=== PATIENT | male | born 1985 | race Caucasian/White ===

== ENCOUNTER 2018-07-10 21:47 | Emergency (ER) | payer OTHER ==
[2018-07-11] MEDS ORDERED: SULFAMETH-TMP DS STARTER PACK 2 TAB BTL PO STA (01:21)
--- NOTE | 2018-07-11 01:23 | ED ---
Skin/Abscess/FB HPI - General Chief complaint: Skin/Abscess/Foreign Body Stated complaint: Abscess Time Seen by Provider: 07/11/18 00:19 Source: patient Mode of arrival: ambulatory Limitations: no limitations - History of Present Illness Initial comments: 32-year-old male patient presents to the emergency department today for evaluation of abscesses to the bilateral forearms. Patient has a history of IV drug use. Patient states he is being treated with Bactrim for for the abscesses. Patient states that they have improved a lot however staff at [facility] was concerned because there is one area that doesn't seem completely healed. Patient states he is occasionally able to squeeze out fluid. He denies any fevers or chills. Denies any significant pain to the arms. States he did complete the prescription and full. Patient denies any recent rash, shortness breath, chest pain, abdominal pain, nausea, vomiting, diarrhea, constipation, back pain, numbness, tingling, dizziness, weakness, hematuria, dysuria, urinary urgency, urinary frequency, headache, visual changes , or any other complaints. - Related Data Previous Rx's Medication Instructions Recorded Sulfamethoxazole/Trimethoprim 1 each PO BID #14 tablet 07/11/18 [Bactrim DS 800-160 mg] Allergies Allergy/AdvReac Type Severity Reaction Status Date / Time No Known Allergies Allergy Verified 07/10/18 22:43 Review of Systems ROS Statement: Those systems with pertinent positive or pertinent negative responses have been documented in the HPI. ROS Other: All systems not noted in ROS Statement are negative. Past Medical History Past Medical History: No Reported History History of Any Multi-Drug Resistant Organisms: None Reported Additional Past Surgical History / Comment(s): Abscess remove with graft, skin graft right arm Past Psychological History: ADD/ADHD, Bipolar, Depression Smoking Status: Current every day smoker Past Alcohol Use History: None Reported Past Drug Use History: Cocaine, Heroin, IV Drug Use, Marijuana General Exam Limitations: no limitations General appearance: alert, in no apparent distress, other (This is a well- developed, well-nourished adult male patient in no acute distress. Vital signs upon presentation are temperature 98.9F, pulse 72, respirations 18, blood pressure 138/89, pulse ox 99% on room air.) Eye exam: Present: normal appearance, PERRL, EOMI. Absent: scleral icterus, conjunctival injection, periorbital swelling ENT exam: Present: normal exam, normal oropharynx, mucous membranes moist Respiratory exam: Present: normal lung sounds bilaterally. Absent: respiratory distress, wheezes, rales, rhonchi, stridor Cardiovascular Exam: Present: regular rate, normal rhythm, normal heart sounds. Absent: systolic murmur, diastolic murmur, rubs, gallop, clicks Extremities exam: Present: full ROM, normal capillary refill, other (There are multiple healing abscesses over the bilateral forearms. There was one particular side on the right forearm that does exhibit some mild warmth and significant surrounding induration. There is no fluctuance or evidence of drainable abscess at this time.). Absent: normal inspection, tenderness, pedal edema, joint swelling, calf tenderness Neurological exam: Present: alert, oriented X3, CN II-XII intact Psychiatric exam: Present: normal affect, normal mood Skin exam: Present: warm, dry, intact, normal color. Absent: rash Course Vital Signs 07/10/18 07/11/18 22:39 01:33 Temperature 98.9 F 98.7 F Pulse Rate 72 70 Respiratory 18 17 Rate Blood Pressure 138/89 149/102 O2 Sat by Pulse 99 100 Oximetry Medical Decision Making - Medical Decision Making 32-year-old male patient presented to the emergency department today for evaluation of abscesses to the bilateral forearms. Physical examination did reveal multiple healing abscesses. There is one to the right forearm which did still exhibit some warmth and induration however there is no fluctuance or evidence of drainable abscess. We will extend patient's Bactrim coverage for an additional 7 days as it does seem to be clearing the infections. He is instructed to apply compresses over the site. He is instructed to follow-up with his primary care physician for recheck. We discharged back to [facility]. Return parameters discussed in detail. He verbalizes understanding and agrees with this plan. Disposition Clinical Impression: Abscess Disposition: HOME SELF-CARE Condition: Good Instructions: Abscess (ED) Additional Instructions: Complete antibiotic prescription and full. Apply warm compresses to the right forearm to promote drainage. Follow-up with your primary care physician for recheck in 1-2 days. Return immediately for any new, worsening, or concerning symptoms. Prescriptions: Sulfamethoxazole/Trimethoprim [Bactrim DS 800-160 mg] 1 each PO BID #14 tablet Is patient prescribed a controlled substance at d/c from ED?: No Referrals: None,Stated [Primary Care Provider] - 1-2 days Time of Disposition: 01:23
[2018-07-11 01:34] VITALS: BP 149/102; PULSE 70; RESP 17; TEMP 98.7
== END 2018-07-11 01:40 | disposition home or self-care (01) ==
LOC: EC 21:47
DX: L02.414 Cutaneous abscess of left upper limb (principal); L02.415 Cutaneous abscess of right lower limb; F17.200 Nicotine dependence, unspecified, uncomplicated
CPT/HCPCS: 99282